=== PATIENT | male | born 1980 | race Caucasian/White ===

== ENCOUNTER 2024-11-13 02:52 | Emergency (ER) | payer MEDICAID, OTHER ==
[~2024-11-13] VITALS: Ht 167.6 cm; Wt 63.5 kg
[~2024-11-13 02:52] MED LIST: NALO4SPR2; ZOFR4T PO
--- NOTE | 2024-11-13 03:19 | ED.PDOC ---
GI ASSESSMENT HPI Comments 43-year-old male who came to ER for abdominal pain. Patient is homeless. Status post cholecystectomy. States for the past 2 days, he has been having intermittent episodes of sharp, epigastric abdominal pain, radiating to his midsternal area, associated with nausea and vomiting. Persistence and worsening of symptoms prompted the patient to come to the emergency room Chief Complaint: Abdominal Pain Time Seen by MD: 03:18 Primary Care Provider: NONE Reviewed Notes: Nurses Notes Allergies: Coded Allergies: NO KNOWN ALLERGIES (Unverified , 12/30/23) Home Meds Active Scripts Ondansetron HCl (Ondansetron Hydrochloride) 8 Mg Tab, 8 MG PO Q6HP PRN, #30 TAB Prov:LIT DUVAL MD 11/13/24 Famotidine (PEPCID TABLET) 20 Mg Tb, 1 TAB PO BID PRN, #60 TAB 5 Refills Prov:LIT DUVAL MD 11/13/24 Gabapentin (Once-Daily) (Gabapentin) 300 Mg Tab, 300 MG PO Q6HP PRN, #60 TAB Prov:LIT DUVAL MD 11/13/24 Naloxone HCl (Narcan) 4 Mg/0.1 Ml Spr, 4 MG NA PRN PRN, #1 BOTTLE Prov:IVAN MIJARES MD 12/30/23 Ondansetron Odt 4MG Tab (ZOFRAN PO) 4 Mg Tb, 4 MG PO TID PRN, #15 TAB ODT TAB-DISSOLVE IN MOUTH, THEN SWALLOW Prov:IVAN MIJARES MD 12/30/23 Information Source: Patient Mode of Arrival: EMS Timing: Days Duration: Intermittent Prehospital treatment: None Quality: Sharp Vomitus: Watery Stool: Normal Severity: Moderate Recent: None Recent Hx of: Ulcer Disease, Abdominal Surgery Pain Location: Epigastric Modifying Factors: Nothing Associated sign and symptoms: Nausea, Vomiting, Diarrhea, Abdominal Pain Past Medical History PAST MEDICAL HISTORY: Denies Surgical History: Cholecystectomy Surgical History (Other): Jaw surgery Family History Family History: Reviewed,noncontributory to illness Social History Smoker: Non-Smoker Alcohol: Denies ETOH Use Drugs: Denies Drug Use Lives In: Homeless Constitutional: denies: chills, diaphoresis, fatigue, fever, malaise, sweats, weakness, others EENTM: denies: blurred vision, double vision, ear bleeding, ear discharge, ear drainage, ear pain, ear ringing, eye pain, eye redness, hearing loss, mouth pain, mouth swelling, nasal discharge, nose bleeding, nose congestion, nose pain, photophobia, tearing, throat pain, throat swelling, voice changes, others Respiratory: denies: cough, hemoptysis, orthopnea, SOB at rest, shortness of breath, SOB with excertion, stridor, wheezing, others Cardiovascular: denies: chest pain, dizzy spells, diaphoresis, Dyspnea on exertion, edema, irregular heart beat, left arm pain, lightheadedness, palpitations, PND, syncope, others Gastrointestinal: reports: abdominal pain, nausea, vomiting; denies: abdomen distended, blood streaked bowels, constipated, diarrhea, dysphagia, difficulty swallowing, hematemesis, melena, poor appetite, poor fluid intake, rectal bleeding, rectal pain, others Genitourinary: denies: burning, dysuria, flank pain, frequency, hematuria, incontinence, penile discharge, penile sore, pain, testicle pain, testicle swelling, urgency, others Neurological: denies: dizziness, fainting, headache, left sided numbness, left sided weakness, numbness, paresthesia, pre-existing deficit, right sided numbness, right sided weakness, seizure, speech problems, tingling, tremors, weakness, others Musculoskeletal: denies: back pain, gout, joint pain, joint swelling, muscle pain, muscle stiffness, neck pain, others Integumetry: denies: bruises, change in color, change in hair/nails, dryness, laceration, lesions, lumps, rash, wounds, others Allergic/Immunocompromised: denies: Difficulty Healing, Frequent Infections, Hives, Itching, others Hematologic/Lymphatic: denies: anemia, blood clots, easy bleeding, easy bruising, swollen glands, others Endocrine: denies: excessive hunger, excessive sweating, excessive thirst, excessive urination, flushing, intolerance to cold, intolerance to heat, unexplained weight gain, unexplained weight loss, others Psychiatric: denies: anxiety, bipolar disorder, depression, hopeless, panic disorder, schizophrenia, sleepless, suicidal, others Physical Exam General Appearance: No Apparent Distress, Normal HEENT: Normal ENT Inspection, Pharynx Normal, TMs Normal Neck: Full Range of Motion, Non-Tender, Normal, Normal Inspection Respiratory: Chest Non-Tender, Lungs Clear, No Accessory Muscle Use, No Respiratory Distress, Normal Breath Sounds Cardiovascular: No Edema, No JVD, No Murmur, No Gallop, Normal Peripheral Pulses, Regular Rate/Rhythm Breast Exam: Deferred Gastrointestinal: Epigastric, No Organomegaly, No Pulsatile Mass, Normal Bowel Sounds, Soft, Tenderness Genitalia: Deferred Pelvic: Deferred Rectal: Deferred Extremities: No calf tenderness, Normal capillary refill, Normal inspection, Normal range of motion, Non-tender, No pedal edema Musculoskeletal : Apperance: Normal Neurologic: Alert, senior training specialist II-XII nml as Tested, No Motor Deficits, Normal Affect, Normal Mood, No Sensory Deficits Cerebellar Function: Normal Reflexes: Normal Skin: Dry, Normal Color, Warm Lymphatic: No Adenopathy Was a procedure done? Was a procedure done?: No GI differential Dx Differential Diagnosis: Diverticular disease, Gastritis/PUD, Gastroenteritis, Pancreatitis, UTI, Urolithiasis, Electrolyte Imbalance X-Ray, Labs, Meds, VS Vital Signs Date Time Temp Pulse Resp B/P (MAP) Pulse Ox O2 Delivery O2 Flow Rate FiO2 11/13/24 04:15 98.0 114 16 141/98 (112) 95 98.0 11/13/24 04:15 95 Room Air* 0 21 11/13/24 03:01 98.6 96 18 149/102 (118) 98 98.6 Lab Test 11/13/24 03:21 Range/Units White Blood Count 15.2 H 4.4-10.8 10^3/uL Red Blood Count 5.64 4.5-5.90 10^6/uL Hemoglobin 17.0 13.5-17.5 g/dL Hematocrit 50.7 41.0-53.0 % Mean Corpuscular Volume 89.9 80.0-100.0 fL Mean Corpuscular Hemoglobin 30.1 28.0-32.0 pg Mean Corpuscular Hemoglobin Concent 33.5 32.0-36.0 g/dL Red Cell Distribution Width 14.2 11.8-14.3 % Platelet Count 458 H 140-450 10^3/uL Mean Platelet Volume 6.7 L 6.9-10.8 fL Neutrophils (%) (Auto) 82.5 H 37.0-80.0 % Lymphocytes (%) (Auto) 10.4 10.0-50.0 % Monocytes (%) (Auto) 5.8 0.0-12.0 % Eosinophils (%) (Auto) 1.0 0.0-7.0 % Basophils (%) (Auto) 0.3 0.0-2.0 % Neutrophils # (Auto) 12.5 H 1.6-8.6 10 ^3/uL Lymphocytes # (Auto) 1.6 0.4-5.4 10 ^3/uL Monocytes # (Auto) 0.9 0-1.3 10 ^3/uL Eosinophils # (Auto) 0.2 0-0.8 10 ^3/uL Basophils # (Auto) 0 0-0.2 10 ^3/uL Nucleated Red Blood Cells 0.1 % Sodium Level 136 136-145 mmol/L Potassium Level 5.2 H 3.5-5.1 mmol/L Chloride Level 103 98-107 mmol/L Carbon Dioxide Level 26 20-31 mmol/L Anion Gap 7 5-15 Blood Urea Nitrogen 12 9-23 mg/dL Creatinine 0.84 0.700-1.30 mg/dL Glomerular Filtration Rate Calc 110 >90 mL/min BUN/Creatinine Ratio 14.3 10.0-20.0 Serum Glucose 160 H 74-106 mg/dL Calcium Level 9.9 8.7-10.4 mg/dL Total Bilirubin 0.7 0.2-1.0 mg/dL Aspartate Amino Transferase (AST) 17 13-40 U/L Alanine Aminotransferase (ALT) 13 7-40 U/L Alkaline Phosphatase 130 H 46-116 U/L Total Protein 7.7 5.7-8.2 g/dL Albumin 4.9 H 3.2-4.8 g/dL Lipase 116 H 12-53 U/L Current Medications Medications (Trade) Dose Ordered Sig/Enrico Route Start Time Stop Time Status Last Admin Ondansetron HCl (Zofran Po) 4 mg ONCE ONCE PO 11/13/24 03:15 11/13/24 03:16 DC 11/13/24 04:25 Famotidine (Pepcid Tablet) 20 mg ONCE ONCE PO 11/13/24 03:15 11/13/24 03:16 DC 11/13/24 04:25 Time of 1ST Reevaluation: 03:15 Reevaluation 1ST: Unchanged Patient Education/Counseling: Diagnosis, Treatment Family Education/Counseling: No Family Present Departure 1 Departure Time of Disposition: 05:15 Impression: Primary Impression: Acute pancreatitis Disposition: 01 HOME / SELF CARE / HOMELESS Condition: Stable e-Prescriptions Ondansetron HCl (Ondansetron Hydrochloride) 8 Mg Tab 8 MG PO Q6HP PRN, #30 TAB Prov: LIT DUVAL MD 11/13/24 Famotidine (PEPCID TABLET) 20 Mg Tb 1 TAB PO BID PRN, #60 TAB 5 Refills Prov: LIT DUVAL MD 11/13/24 Gabapentin (Once-Daily) (Gabapentin) 300 Mg Tab 300 MG PO Q6HP PRN, #60 TAB Prov: LIT DUVAL MD 11/13/24 Discharged With: Self Critical Care Note Critical Care Time?: No Stability Stability form required: No Heart Score Heart Score: Heart Score Response (Comments) Value History N/A 0 EKG N/A 0 Age N/A 0 Risk Factors N/A 0 Troponin N/A 0 Total 0 I personally scribed for LIT DUVAL MD ([email or web address]) on 11/13/24 at 03:19. Electronically submitted by Joe Espinoza ([email or web address]). I personally scribed for LIT DUVAL MD ([email or web address]) on 11/13/24 at 04:12. Electronically submitted by Joe Espinoza ([email or web address]). LIT DUVAL MD Nov 13, 2024 03:19
[2024-11-13 03:29] LABS: Eosinophils # (auto) 0.2 10 ^3/uL (0-0.8); Monocytes # (auto) 0.9 10 ^3/uL (0-1.3); White Blood Cell 15.2 10^3/uL (4.4-10.8)
[2024-11-13 03:31] LABS: Basophils # (auto) 0 10 ^3/uL (0-0.2); Basophils % (auto) 0.3 % (0.0-2.0); Hematocrit 50.7 % (41.0-53.0); Lymphocytes # (auto) 1.6 10 ^3/uL (0.4-5.4); Lymphocytes % (auto) 10.4 % (10.0-50.0); Mean Corpuscular Hemoglobin 30.1 pg (28.0-32.0); Mean Corpuscular Hgb Conc. 33.5 g/dL (32.0-36.0); Mean Corpuscular Volume 89.9 fL (80.0-100.0); Monocytes % (auto) 5.8 % (0.0-12.0); Neutrophils # (auto) 12.5 10 ^3/uL (1.6-8.6); Neutrophils % (auto) 82.5 % (37.0-80.0); Nucleated Red Blood Cells % 0.1 %; Platelet Count (auto) 458 10^3/uL (140-450); Red Blood Cells 5.64 10^6/uL (4.5-5.90); Red Cell Distribution Width 14.2 % (11.8-14.3)
[2024-11-13 03:43] LABS: Alanine Aminotransferase 13 U/L (7-40); Anion Gap 7 (5-15); Aspartate Aminotransferase 17 U/L (13-40); BUN/Creatinine Ratio 14.3 (10.0-20.0); Bilirubin, Total 0.7 mg/dL (0.2-1.0); Blood Urea Nitrogen 12 mg/dL (9-23); Calcium 9.9 mg/dL (8.7-10.4); Carbon Dioxide 26 mmol/L (20-31); Chloride 103 mmol/L (98-107); Total Protein 7.7 g/dL (5.7-8.2)
[2024-11-13 03:50] LABS: Albumin 4.9 g/dL (3.2-4.8); Alkaline Phosphatase 130 U/L (46-116); Glucose 160 mg/dL (74-106); Lipase 116 U/L (12-53); Potassium 5.2 mmol/L (3.5-5.1); Sodium 136 mmol/L (136-145)
--- NOTE | 2024-11-13 03:56 | DVH ---
Exam: CT CT AB PEL WO CON-NO ORAL OR IV History: flank pain Comparison Study: None Technique: Multidetector spiral CT of the abdomen was performed from lung bases to pubic symphysis. I maging was performed without IV contrast. Axial, coronal and sagittal multiplanar reformats were obta ined from the axial data set by the technologist. Radiation Dose : 1. Abdomen/Pelvis: CTDIvol 5.19 mGy, DLP 317.66 mGy*cm. Findings: Evaluation of solid organs is limited due to lack of intravenous contrast use. Lung Bases: No acute or significant lung base finding. Normal heart size. No pleural or pericardial effusion. Liver: The liver is normal in size. No focal lesions. 1.4 cm left hepatic lobe cyst. Gallbladder and Biliary Tree: Status post cholecystectomy. Spleen: Unremarkable Pancreas: The pancreas is grossly normal in appearance. Adrenal Glands: Unremarkable Kidneys: Kidneys are grossly normal without hydronephrosis. Punctate nonobstructing bilateral pelvoc aliceal calculi noted. Bladder: Grossly unremarkable for degree of distention. Bowel: The stomach is grossly normal in appearance. Small bowel and colon are normal in caliber and d istribution. The appendix is normal. Ascites: Absent Lymphadenopathy: No mesenteric, retroperitoneal or periportal lymphadenopathy. Abdominal Wall and Mesentery: Moderate fat containing left inguinal hernia. Otherwise, unremarkable. Vasculature: The visualized abdominal aorta is normal in size and caliber. Atherosclerotic vascular c alcifications. Evaluation of abdominal and pelvic vessels is limited due to lack of intravenous cont rast. Pelvic Organs: Unremarkable Musculoskeletal: No aggressive focal bony lesions, acute fractures or dislocation. Advanced degenerat leatha change of the left hip noted. IMPRESSION: 1. No acute abdominal or pelvic findings. 2. Nonobstructive bilateral nephrolithiasis. 3. Moderate fat containing left inguinal hernia. Radiation optimization: All CT scans at this facility use at least one of these dose optimization aura hniques: automated exposure control mA and/or kV adjustment per patient size (includes targeted exam s where dose is matched to clinical indication) or iterative reconstruction.
[2024-11-13 04:15] VITALS: BP 141/98; PULSE 114; RESP 16; TEMP 98; O2SAT 95
[2024-11-13] MEDS: ONDANSETRON ODT 4 MG TAB PO ONE (04:25)
[2024-11-13] MEDS: FAMOTIDINE 20 MG TAB PO ONE (04:25)
[2024-11-13] MEDS ORDERED: ONDA-180 PO (04:36)
[2024-11-13] MEDS ORDERED: FAMO20TA10 PO (04:36)
[2024-11-13] MEDS ORDERED: GABA300T4 PO (04:36)
== END 2024-11-13 05:56 | disposition home or self-care (01) ==
LOC: EDBD 02:52 → ER 02:56
DX: K85.90 Acute pancreatitis without necrosis or infection, unspecified (principal); Z90.49 Acquired absence of other specified parts of digestive tract; Z59.00 Homelessness unspecified; Z98.890 Other specified postprocedural states; Z79.899 Other long term (current) drug therapy
CPT/HCPCS: 36415; 74176; 80053; 83690; 85025; 99284; Q0162